=== PATIENT | male | born 1935 | race Caucasian/White ===

== ENCOUNTER 2016-05-31 21:19 | Inpatient (IN) | payer MEDICARE, BC ==
--- NOTE | ~2016-05-31 | MR18 ---
[facility] A Service of [facility] RADIOLOGY TEXT RESULTS PATIENT: SARA CARTER LOCATION: [facility]3A PC 317- : 37 UNIT #: [id number] AGE: [address]: Randy Vo MD SEX: M ORDER DR: [id number] [facility] [address]. [place], [place] [address] [id number] I MR#: [id number] Acc #: [id number] NAME: SARA CARTER : 1935 SEX: M STUDY DATE/TIME: 06/01/2016 10:14 [facility] [id number] STUDY DESCRIPTION: MR Brain Wo Contrast Attending Physician: Randy Vo M.D. Ordering Physician: Manish Mitchell M.D. Primary Care Physician: Grayson Law Jr., M.D. MRI CENTER REPORT This report is preliminary unless electronic signature is present. EXAM Brain MRI HISTORY Weakness to the left arm beginning yesterday. TECHNIQUE Multiplanar imaging of the brain was performed including diffusion weighted images. FINDINGS On diffusion weighted imaging there is a small focus of abnormal restricted diffusion in the precentral gyrus area on the right. There are 2 small foci each measuring a few millimeters in diameter in the cortex. The routine brain images show generalized atrophy with mild chronic ischemic changes around the ventricles. There is no evidence of mass lesion. There is no evidence of hemorrhage on gradient echo imaging. Extraaxial structures are remarkable for mild mastoid inflammatory disease on the left. IMPRESSION 1. Atrophy with mild chronic ischemic changes. 2. Tiny cortical infarcts are seen in the precentral gyrus on the right consistent with recent infarction. There are 2 small cortical infarcts adjacent to each other each measuring about 3-4 mm in diameter. STAT * RESULT Dictated by... [facility] A Service [facility] RADIOLOGY TEXT RESULTS PATIENT: SARA CARTER LOCATION: C3[facility] PC 317- : 37 UNIT #: [id number] AGE: [address]: Randy Vo MD SEX: M ORDER DR: Francisco Miller M.D. THIS IS AN ELECTRONICALLY VERIFIED REPORT Francisco Miller M.D. at 06/01/2016 1:03 PM RLF/to TD: 06/01/2016 11:21 JOB #: [id number] MRI CENTER REPORT Page 1 of 1 COPY
--- NOTE | ~2016-05-31 | A ---
[facility] Nutrition Therapy DATE: 06/01/16 Patient: SARA CARTER Physician: RENA Address: [address] [facility] Room/Bed: [address] [place] [address], Zip: [place] [phone] Admit Date: 05/31/16 Date of : 37 Height: Weight: NUTRITIONAL ASSESSMENT: REASON: Stroke protocol consult Diet: Heart healthy Assessment: Chart reviewed, events noted. RD consulted for stroke protocol. Per information in chart, pt did not require [employer]IST evaluation. RD spoke with the pt at bedside. Pt denies having any chewing or swallowng difficulties, and reports having a good appetite. RD provided heart healthy diet education. Pt was very pleasant, however, he did not seem interested in making changes to his diet. RD provided printed materials, and told the pt to contact RD with any questions. RD to remain available. Recommendations: 1. Follow a heart healthy diet as instructed by RD. Please consult RD for any further nutritional needs. Respectfully, AXEL PAULINO RD, LD Food and Nutritional Services [facility] cc: client file
--- NOTE | ~2016-05-31 | CT24 ---
[facility] A Service of [facility] RADIOLOGY TEXT RESULTS PATIENT: SARA CARTER LOCATION: C3A 317-01 : 37 UNIT #: [id number] AGE: [address]: Randy Vo MD SEX: M ORDER DR: [id number] [facility] [address] [place], [place] [address] [id number] I MR#: [id number] #: [id number] NAME: SARA CARTER. : 1935 SEX: M STUDY DATE/TIME: 05/31/2016 20:45 [facility] [id number] STUDY DESCRIPTION: CT Angio Neck Stroke Attending Physician: Tracey Horn M.D. Ordering Physician: Manish Mitchell M.D. Primary Care Physician: Grayson Law Jr., M.D. MEDICAL IMAGING REPORT This report is preliminary unless electronic signature is present EXAM CT angiogram head and neck with IV contrast. HISTORY Left arm weakness for 1 hour today. TECHNIQUE IV contrast-enhanced CT angiogram of the head and neck was performed with 3-D reconstructions. This CT exam was performed with one or more of the following radiation dose reduction techniques: automatic exposure control, adjustment of mA and/or kV according to patient size, and iterative reconstruction. FINDINGS CT ANGIOGRAM NECK: The common carotid arteries are widely patent bilaterally. There is mild calcified atherosclerotic plaque in the carotid bulbs bilaterally with minimal plaque extending into the proximal left internal carotid artery, but no evidence of internal carotid artery stenosis by NASCET criteria. Both vertebral arteries are widely patent. CT ANGIOGRAM BRAIN: The intracranial internal carotid arteries are widely patent. The anterior cerebral, middle cerebral and posterior cerebral arteries are also widely patent. The intracranial vertebral arteries and basilar artery are widely patent. No focal occlusion or significant stenosis. No aneurysm or vascular malformation. There is a probable 2 mm tiny infundibulum at the level of the origin of the right posterior communicating artery. However, no posterior communicating arteries are identified. IMPRESSION [facility] A Service of [facility] RADIOLOGY TEXT RESULTS PATIENT: SARA CARTER LOCATION: C3A 317-01 : 37 UNIT #: [id number] AGE: [address]: Randy Vo MD SEX: M ORDER DR: 1. No hemodynamically significant cervical carotid artery stenosis by NASCET criteria. 2. Very mild partly calcified atherosclerotic plaque in the carotid bulbs and in the proximal internal carotid arteries bilaterally. 3. Both vertebral arteries are widely patent. 4. No major intracranial arterial stenosis or occlusion. Probable tiny 2 mm infundibulum at the level of the right PCOM origin but no posterior communicating arteries are identified. Dictated by... Mike Camarena M.D. THIS IS AN ELECTRONICALLY VERIFIED REPORT Mike Camarena M.D. at 06/01/2016 2:30 PM ANGELIA/mejia TD: 06/01/2016 01:00 JOB #: [id number] MEDICAL IMAGING REPORT Page 1 of 1 COPY
--- NOTE | ~2016-05-31 | CO ---
Unit #: [id number] #: [id number] Patient: SARA CARTER [id number] [facility] [address]. [place], [place] [address] [id number] I MR#: [id number] NAME: SARA CARTER ROOM: 317 Age: 80 Sex: M Admission Date: 06/01/2016 : 1935 Attending Physician: Randy Vo M.D. Primary Care Physician: Grayson Law Jr., M.D. Consultation Date: 06/01/2016 CONSULTATION REPORT CONSULTING PHYSICIAN Dr. Tracey Horn REASON FOR CONSULTATION TIA. PATIENT IDENTIFICATION 80-year-old right-handed male evaluated initially in the ED room 20, he is now in room 317 at [facility]. SOURCE OF INFORMATION Obtained from the patient, as well as the medical record. HISTORY OF PRESENT ILLNESS This is a 80-year-old, right-handed, male with a past medical history of hypertension, 2D echo in 2011 that showed an EF of 40%, history of nonsustained supraventricular tachycardia, hyperlipidemia and BPH, as well as he is a reformed smoker who presented to [facility] with complaints of sudden onset left hand clumsiness and dropping things. He states that he was in his usual state of health until yesterday around 5:30 whenever he was watching TV. Whenever he noticed suddenly that he had weakness in his left arm, trouble using it and he actually was dropping things. He states he was not doing anything out of the ordinary and noticed sudden difficulty using the hands. He reports symptoms began to improve but admits that he still is not fully back to his baseline but he states that he feels pretty good. He denies any focal left facial or left leg difficulty. He denies any feeling of numbness or tingling. He states specifically that it was more of a difficulty using his left hand and dropping things. He actually came within the window for treatment but given his significant improvement of symptoms he was treated for TIA. Dr. Barber did see the patient via robot and initially discussed with him regarding the risks and benefits about the places he still had a measurable deficit. Whenever he saw the patient, the patient refused (1) and decided to observe. His head CT done in the ER without contrast per (2) protocol was unremarkable. His CT angiogram of the head and neck was negative for any hemodynamically significant cervical carotid artery stenosis by NASCET criteria. There is some very mild partly calcified atherosclerotic plaque in the carotid bulbs and proximal internal carotid arteries bilaterally. Both vertebral arteries are widely patent and no major intracranial arterial stenosis or occlusion. Probably tiny 2 mm infundibulum at the level of the right PCOM origin but no posterior communicating arteries are identified. Upon evaluation, the patient does have some mild difficulty using his left hand. His coordination seems to be slightly impaired but not significant. Unit #: [id number] #: [id number] Patient: SARA CARTER His strength is essentially equal. In the lower extremities he does not appear to have any difficulty, otherwise his exam is unremarkable. The patient states that he wants to go home. I did explain to him that he has risk factors for stroke and needs full evaluation and treatment. After evaluation, he did have an MRI of the brain done without contrast that shows atrophy with mild chronic ischemic changes but also shows an area of tiny cortical infarcts in the precentral gyrus on the right consistent with recent infarction. Two small cortical infarcts adjacent to each other measuring 3-4 mm in diameter. Imaging has been reviewed by Dr. Barber and discussed with him. The patient is being admitted for further workup and evaluation and given his essentially unremarkable CT angiogram, we have requested that he have a transesophageal echocardiogram done by cardiology that is being scheduled for tomorrow. Otherwise his labs are essentially unremarkable. CBC was negative. Troponin less than 0.05. PT 10.6, INR 1.0, PTT 24.3. BNP was unremarkable other than a glucose of 123. His creatinine is 1.2 and estimated GFR of 27.6. Repeat troponin unremarkable. Glucose on arrival is 116. PAST MEDICAL HISTORY 1. Hypertension. 2. 2D echo on 2011 showed an EF of 40%. 3. Cardiac catheterization in 2012 that shows no ischemic cardiomyopathy. Ejection fraction 40% to 45%. Medical management was recommended. 4. BPH. 5. Nonsustained supraventricular tachycardia. 6. Hyperlipidemia. 7. Reformed smoker. 8. Pneumonia. 9. Lumbar fusion. ALLERGIES No known drug allergies. HOME MEDICATIONS As per med rec. 1. Aspirin 81 mg p.o. daily. 2. Carvedilol 3.125 mg p.o. b.i.d. 3. Cozaar 12.5 mg p.o. daily. 4. Zetia 10 mg p.o. daily. 5. Furosemide 40 mg p.o. daily, however, he states that he ran out of his furosemide about a week or two ago and has not had it refilled. 6. Voltaren 100 g topically 4 times daily. REVIEW OF SYSTEMS 14 point review of systems was done, pertinent positives as above, otherwise negative. FAMILY HISTORY Noncontributory given his presenting condition. SOCIAL HISTORY He is a reformed smoker, he quit in 1968. He denies alcohol abuse or illicit drug use. PHYSICAL EXAMINATION VITAL SIGNS: Temperature 98.6, pulse 76, respirations 24, blood pressure 147/60, oxygen saturation 96%, height 6 feet, 2 inches. Unit #: [id number] #: [id number] Patient: SARA CARTER NEUROLOGIC EXAM: Patient is awake. He is alert and oriented to person, place and time, as well as events. No right/left confusion. No finger agnosia. No aphasia, dysarthria, or apraxia. CRANIAL NERVE EXAM: He demonstrates full hannah of vision. Eyes are conjugate without ptosis or nystagmus. Extraocular movements are intact. Sensation of the face and scalp is intact. Strength of muscles of facial expressions intact. Hearing is intact to finger rub as well as conversation. Tongue is midline, uvula is midline. Palate elevation is normal. Head turning and shoulder shrug is unremarkable. Neck supple. MOTOR EXAM: He demonstrates normal bulk, normal tone. His strength is equal, essentially 5 out of 5 in all extremities. He, however, had some difficulty with the left hand with [id number] and it is very mild abnormality and some mild difficulty with some motor movements but nothing involving the leg. SENSORY EXAM: Intact to soft touch and pinprick sensation. No extinction appreciated. GAIT AND ROMBERG: Deferred. REFLEXES: 1 out of 4. Toes are equivocal. COORDINATION: As discussed above. DIAGNOSTIC STUDIES IMAGING: Please see above. LABORATORY: Please see above. IMPRESSION 1. New onset left upper extremity with ataxia, likely secondary to MRI brain imaging. Findings of tiny cortical infarcts in the right hemisphere consistent with acute stroke, rule out cardioembolic etiology. We have requested a NUHA for tomorrow that has been arranged. Not thromboembolic cause identified on CT angiogram imaging. Risk factors have been discussed with the patient at length. 2. Hypertension. 3. Hyperlipidemia. Will start the patient on statin. 4. Noncompliance with medications recently. 5. BPH. 6. History of 2D echo ultrasound with EF of 40 in 2011, will await NUHA. PLAN Please see above, modification of risk factors have been discussed with the patient at length, regarding pathology of stroke and why he needs to remain here for a NUHA. He wishes to go home but is agreeable to stay. Further recommendations pending workup and further clinical course including NUHA to be done tomorrow. Patient is seen by Dr. Barbre and he agrees to the above. We will follow along with you. We thank you very much for allowing us to assist in the care of this patient. Dictated by... Keny Reed/jude TD: 06/02/2016 08:10 JOB #: [id number] Unit #: [id number] #: [id number] Patient: SARA CARTER CONSULTATION REPORT Page 1 of 1 X Ladi Jones APRN X CONSULTATION REPORT
--- NOTE | ~2016-05-31 | HM ---
Unit #: [id number] #: [id number] Patient: SARA CARTER [id number] [address] [address] [id number] I MR#: [id number] NAME: SARA CARTER. : 1935 SEX: M STUDY DATE/TIME: 06/01/2016 UNIT: C3A PCU ROOM: [address] [place] [address] DESCRIPTION: Holter Monitor Attending Physician: Randy Vo M.D. Primary Care Physician: Grayson Law Jr., M.D. CARDIOLOGY REPORT EXAM 24 Hour Holter Monitor DATE APPLIED 06/01/2016 DATE SCANNED 06/04/[address] Randy Vo READ BY Alyse Villegas M.D. REASON FOR THE STUDY Stroke. FINDINGS Underlying rhythm is normal sinus rhythm with an average heart rate of 82 beats, minimum heart rate of 60 beats per minute, and a maximum heart rate of 111 beats per minute. The minimum heart rate of 60 beats per minute is noted at 5:40 a.m. The maximum heart rate of 111 beats per minute is noted at 11:35 a.m. The patient had a 1.4 second pause noted at 5:42 a.m. The patient had 11,856 single multifocal premature ventricular complexes, just 11% of total QRS complexes. The patient had 391 ventricular couplets and 177 ventricular bigeminy noted. The patient had 3 to 5 beat run of ventricular tachycardia with heart rate ranging from 90 to 160 beats per minute. The patient had 30,413 single premature atrial complexes, 1758 atrial couplets noted. The patient had several atrial bigeminy noted. Patient had 3 to 18 beat run of atrial tachycardia with a heart rate ranging from 105 to 170 beats per minute. Patient did not record any symptoms. CONCLUSION 1. Underlying rhythm is normal sinus rhythm with an average heart rate of 82 beats per minute, minimum heart rate of 60 beats per minute with a maximum heart of 111 beats per minute. 2. No sustained atrial or ventricular arrhythmias noted. 3. No significant pauses noted. 4. Extremely frequent single multifocal premature ventricular complex, very frequent ventricular couplet and ventricular bigeminy noted. Unit #: [id number] #: [id number] Patient: SARA CARTER 5. The patient had several 3 to 5 beat run of ventricular tachycardia with heart rate ranging from 90 to 160 beats per minute. 6. Extremely frequent premature atrial complex, atrial couplet and atrial bigeminy noted. 7. The patient had several 3 to 18 beat run of atrial tachycardia with a heart rate ranging from 105 to 170 beats per minute. 8. The patient did not record any symptoms. 9. Very abnormal 24 hour Holter report. Dictated by... Tony Nuñez TD: 06/06/2016 05:58 JOB #: [id number] CARDIOLOGY REPORT Page 1 of 1 X Alyse Villegas MD <ELECTRONICALLY SIGNED> 09/16/16 1429 HOLTER MONITOR REPORT
--- NOTE | ~2016-05-31 | CT72 ---
[facility] A Service [facility] RADIOLOGY TEXT RESULTS PATIENT: SARA CARTER LOCATION: [facility] 317- : 37 UNIT #: [id number] AGE: [address]: Randy Vo MD SEX: M ORDER DR: [id number] [address] [place], [place] [address] [id number] MR#: [id number] Acc #: [id number] NAME: SARA CARTER. : 1935 SEX: M STUDY DATE/TIME: 05/31/2016 20:40 UNIT: [facility] ROOM: STUDY DESCRIPTION: CT Head Wo Contrast Stroke Attending Physician: Manish Mitchell M.D. Ordering Physician: Manish Mitchell M.D. Primary Care Physician: Grayson Law Jr., M.D. MEDICAL IMAGING REPORT This report is preliminary unless electronic signature is present EXAM CT head INDICATION Focal neurological deficit. Weakness in the left arm for [address] of the head without contrast. This CT exam was performed with one or more of the following radiation dose reduction techniques: automatic exposure control, adjustment of mA and/or kV according to patient size, and iterative reconstruction. COMPARISON CT head 12/09/01 FINDINGS There is no acute intracranial hemorrhage, mass lesion, or acute infarct. Velasco-white matter differentiation is within normal limits. The ventricles and basilar cisterns are normal in size and configuration. No extraaxial collection. IMPRESSION No acute intracranial findings. Dictated by... Aleks Jain M.D. THIS IS AN ELECTRONICALLY VERIFIED REPORT Aleks Jain M.D. at 06/01/2016 3:28 PM RPC/mejia [facility] A Service [facility] RADIOLOGY TEXT RESULTS PATIENT: SARA CARTER LOCATION: [facility] 317- : 37 UNIT #: [id number] AGE: [address]: Randy Vo MD SEX: M ORDER DR: TD: 05/31/2016 23:38 JOB #: [id number] MEDICAL IMAGING REPORT Page 1 of 1 COPY
--- NOTE | ~2016-05-31 | EKG ---
PATIENT: SARA CARTER UNIT #: [id number] Ventricular Rate: 88 BPM Atrial Rate: 88 BPM P-R Interval: 178 ms QRS Duration: 92 ms Q-T Interval: 392 ms QTC Calculation(Bezet): 474 ms P [place]: 42 degrees Calculated R [place]: -41 degrees Calculated T [place]: -23 degrees Diagnosis Line: Sinus rhythm with Premature supraventricular Diagnosis Line: complexes and with occasional Premature Diagnosis Line: ventricular complexes Diagnosis Line: Left axis deviation Diagnosis Line: Incomplete right bundle branch block Diagnosis Line: Septal infarct (cited on or before 26-DEC-2010) Diagnosis Line: Abnormal ECG Diagnosis Line: When compared with ECG of 03-MAY-2012 11:58, Diagnosis Line: Significant changes have occurred Diagnosis Line: Confirmed by MARY SANDOVAL MD ([id number]) on 06/02/2016 Diagnosis Line: 6:55:53 PM INTERPRETING MD: LORI HOPE
--- NOTE | ~2016-05-31 | DS ---
Unit #: [id number] #: [id number] Patient: SARA CARTER [id number] [address] [address] [id number] I MR#: [id number] NAME: SARA CARTER. ROOM: 317 Age: 80 Sex: M Admission Date: 06/01/2016 : 1935 Discharge Date: 06/02/2016 Attending Physician: Randy Vo M.D. Primary Care Physician: Grayson Law Jr., M.D. DISCHARGE SUMMARY DISCHARGE DIAGNOSES 1. Acute cortical infarction with resolved left upper extremity weakness as well as ataxia. 2. Essential hypertension. 3. Nonischemic cardiomyopathy with an ejection fraction of 35%. 4. History of nonsustained ventricular tachycardia. 5. Noncompliance with medications. 6. Degenerative joint disease. 7. Dyslipidemia. CONSULTANTS Dr. Barber of neurology. PROCEDURES Patient had a NUHA done by Dr. Esteban Charles. Please refer to his full dictated report for further details. DIAGNOSTIC STUDIES IMAGING: Head CT on 05/31/16, impression: No acute intracranial findings. CT angio of neck, impression: No hemodynamically significant cervical carotid artery stenosis. Very mild partly calcified atherosclerotic plaque in the carotid bulbs and in the proximal internal carotid arteries bilaterally. Both vertebral arteries are widely patent. No major intracranial arterial stenosis or occlusion. Probably tiny 2 mm infundibulum at the level of the right PCOM origin but no posterior communicating arteries are identified. MRI without contrast, impression: Atrophy with mild chronic ischemic changes. Tiny cortical infarcts are seen in the precentral gyrus on the right consistent with recent infarction. There are 2 small cortical infarcts adjacent to each other each measuring about 3-4 mm in diameter. LABORATORY: The patient's labs on the day of discharge are glucose 89, BUN 19, creatinine 1.2, sodium 139, potassium 4.7, chloride 103, CO2 29, calcium 8.7, magnesium 2.3, total protein of 7.2, albumin of 3.8, total bilirubin 1.1, AST of 16, ALT of 12, alkaline phosphatase 76. The patient's A1C was 5.6. Fasting lipids: Total cholesterol was 266, LDL of 208. CBC with WBC of 6.9, RBC of 5.03, hemoglobin 15.1, hematocrit is 46.2, MCV is 92.0, MCH is 30.1, MCHC is 32.7, RDW is 13.7, platelet is 251, MPV is 8.9. Unit #: [id number] #: [id number] Patient: SARA CARTER [facility] This patient is a 80-year-old male with a past medical history of essential hypertension, diastolic heart failure with an ejection fraction of 40% back in 2011, nonischemic cardiomyopathy, history of nonsustained v-tach, hyperlipidemia, BMH, who is a former smoker, presented to the emergency department due to complaints of sudden onset of left-sided numbness, symptom is intermittent, it comes and goes, as well as being clumsy and dropping things. He was in his usual state of health until the day prior to admission around 5:30 was watching TV when he felt some left arm numbness. He presented to the emergency department where head CT was done and it was unremarkable. CT angiogram of neck was done which was unremarkable as well. Patient was seen in consult with Cardiology and then with Neurology and had an MRI of the brain done which did show a small tiny cortical infarct in the precentral gyrus on the right consistent with recent infarction. Due to the patient's recent event as well as significant comorbidities a NUHA was done by Cardiology. Preliminary findings state no clots and no signs of significant atherosclerosis of the ascending aorta. No obvious cardiac source (1) by the transesophageal echocardiogram therefore at this time with the patient's resolution of the symptoms Neurology is recommending that patient be discharged home with Plavix as well as Lipitor 40 mg p.o. q.h.s. If patient had mild muscle pain with previous statin usage he cannot recall what it was. Both Neurology and I have spent an extensive amount of time consulting patient on the need to either call up his family doctor or to present to the emergency department for further symptoms of muscle aches and pains as well as no urine output in 24 hours. He voiced understanding. CONDITION ON DISCHARGE Discharge condition is stable. ACTIVITY Discharge activity is nonrestricted with ambulating every day as tolerated. DIET He is to have a heart-healthy diet. DISCHARGE MEDICINES 1. Zetia 10 mg p.o. daily. 2. Coreg 3.125 mg p.o. b.i.d. A prescription for 30 days was given. 3. Lasix 40 mg p.o. daily. 4. Losartan 12.5 mg p.o. daily. A prescription for 30 says was given. 5. Patient should stop the aspirin. 6. Start Plavix 75 mg p.o. daily, as well as 7. Lipitor 40 mg p.o. daily. ADDENDUM On followup with his primary care physician, if patient is tolerating Lipitor at 40 may consider increasing to 80 mg p.o. daily as this is the recommended guideline for patient with an elevated LDL as well as having an embolic event. The second thing is that patient seems to have been experiencing some adjustment disorder with the stressor being financial burden. Patient would not elaborate to myself about this but did mention this to Ladi Jones, nurse practitioner with Neurology. At this time I would recommend Unit #: [id number] #: [id number] Patient: SARA CARTER that patient follow up with Dr. Law about this possibility for starting him on any selective serotonin reuptake inhibitor for his depression/anxiety issues. JOB #: [id number] Dictated by... Ra Monreal PA-C for Tony Calvo/percy TD: 06/02/2016 18:15 JOB #: [id number] DISCHARGE SUMMARY Page 1 of 1 X X DISCHARGE SUMMARY
--- NOTE | ~2016-05-31 | HP ---
Unit #: [id number] #: [id number] Patient: SARA CARTER [id number] [address] [address] [id number] I MR#: [id number] NAME: SARA CARTER. ROOM: 65248 Age: 80 Sex: M Admission Date: 05/31/2016 : 1935 Attending Physician: Tracey Horn M.D. Primary Care Physician: Grayson Law Jr., M.D. HISTORY AND PHYSICAL CHIEF COMPLAINT Left hand weakness. HISTORY This 80-year-old male with hypertension, nonischemic cardiomyopathy, hyperlipidemia, is admitted for complaints of left hand weakness. Patient was in his usual state of health until 5 p.m. tonight, when he developed sudden weakness and incoordination of the left hand. He was holding a can of fruit and dropped the can. Denies any other neurologic symptoms with the above. He presented to this emergency department at 7:30 p.m. and immediately went to CT scanner, which was essentially normal. The case was also discussed with Neurology, who initially recommended TPA, but the patient declined. His symptoms are now improved. He may have very slight incoordination, but his strength is back to normal. He has never had similar symptoms in the past. The patient's EKG shows normal sinus rhythm with APCs and PVCs. Patient does have history of nonsustained ventricular tachycardia. PAST MEDICAL HISTORY 1. Cardiac catheterization 04/2012 revealing 30% lesion of the LAD. Ejection fraction 45%. Patient has a history of nonsustained ventricular tachycardia. 2. Essential hypertension. 3. Hyperlipidemia. 4. DJD. 5. Back surgery. ALLERGIES No known drug allergies. HOME MEDICATIONS 1. Aspirin 81 mg daily 2. Coreg b.i.d. Other medicines of unknown names that patient ran out of 2 weeks ago. FAMILY HISTORY Negative for cardiovascular disease or CVA. SOCIAL HISTORY Unit #: [id number] #: [id number] Patient: SARA CARTER The patient lives alone. He stopped smoking in 1968. He does not drink alcohol. REVIEW OF SYSTEMS Notable for left hand weakness, minor CAD, arrhythmia, hyperlipidemia, hypertension, DJD, back surgery. All other systems were reviewed and are negative. PHYSICAL EXAMINATION GENERAL: 80-year-old male currently in no acute distress. VITAL SIGNS: Temperature 98.1. Pulse was initially read as 40, but currently on EKG his heart rate is 88. Respirations 16, blood pressure 152/57, O2 saturation 97% on room air. HEENT EXAMINATION: Eyes PERRLA. Extraocular muscles are intact. Pharynx is benign. NECK: Supple without adenopathy, thyromegaly or carotid bruits. CHEST: Clear. CARDIAC: Normal S1, S2 with a soft systolic murmur best heard at the right upper sternal border. ABDOMEN: Bowel sounds are present. No hepatosplenomegaly, tenderness or masses. EXTREMITIES: Mild edema. Pedal pulses are present. NEUROLOGIC EXAM: Patient is awake, alert, oriented. His cranial nerves are intact. He has +5/5 strength throughout. Some slight difficulty with rapid alternating movements on the left. Some slight difficulty with [id number] on the left. Negative pronator drift. He is able to sit up without assistance. DIAGNOSTIC STUDIES ADMISSION LABORATORY: Hematocrit is 44.1, normal white count, platelet count and coags. SMA-12: Glucose is 123. Cardiac markers are negative. IMAGING 1. Head CT: No acute disease. 2. CTA of the head and neck: Negative. Mild plaque in the carotid bulbs and bilateral internal carotid arteries. No cutoff or occlusion. 2 mm infundibulum right PICA origin. CARDIOLOGY: EKG shows a normal sinus rhythm, rate 88, with PACs and PVCs. Somewhat poor R wave progression in V1 through V3. Left axis deviation. ASSESSMENT 1. Transient ischemic attack affecting the left hand, improved. 2. Essential hypertension. 3. Nonischemic cardiomyopathy, ejection fraction 45%. 4. History of nonsustained ventricular tachycardia. 5. Noncompliance with medicines. 6. Degenerative joint disease. 7. Hyperlipidemia. PLANS 1. Need names and doses of home medicines. 2. Increase aspirin. 3. Case was discussed with Neurology. Unit #: [id number] #: [id number] Patient: SARA CARTER 4. Check lipid profile, Holter monitor, echocardiogram and MRI of the brain. 5. SCDs for DVT prophylaxis. Dictated by Tony Cueto/psc TD: 06/01/2016 02:10 JOB #: [id number] CC: Eri Wright M.D. HISTORY AND PHYSICAL Page 1 of 1 X Tracey Horn MD HISTORY AND PHYSICAL
[2016-05-31 20:44] LABS: BASOPHIL# 0.1 X10e3 (0-0.3); DIFF IND NO; EOSINOPHIL# 0.2 X10e3 (0-0.7); EOSINOPHIL% 2.8 % (0.0-7.0); HEMATOCRIT 44.1 % (38.0-50.0); HEMOGLOBIN 14.5 gm/dL (13.0-16.0); LYMPHOCYTE# 1.4 X10e3 (1.0-3.5); LYMPHOCYTE% 23.7 % (17.0-45.0); MEAN PLATELET VOLUME 8.6 FL (6.5-11.5); MONOCYTE# 0.6 X10e3 (0-1.0); NEUTROPHIL# 3.9 X10e3 (1.5-7.1); NEUTROPHIL% 63.5 % (40-75); PLATELET COUNT 230 X10e3 (140-420); RED BLOOD COUNT 4.84 X10e (3.90-5.60); RED CELL DISTRIBUTION WIDTH 13.8 % (11.0-15.5); WHITE BLOOD COUNT 6.1 X10e3 (4.0-10.5)
[2016-05-31 20:51] LABS: POC - CKMB 1.1 ng/mL (0.0-7.9); POC - TROPONIN <0.05 ng/mL (<=0.05)
[2016-05-31 20:57] LABS: PARTIAL THROMBOPLASTIN TIME 24.3 SECONDS (23.5-31.3); PROTHROMBIN TIME (PATIENT) 10.6 SECONDS (9.6-11.5)
[2016-05-31 21:04] LABS: ALBUMIN SERUM 3.8 g/dL (3.5-5.0); BILIRUBIN, DIRECT 0.1 mg/dL (0.0-0.2); BILIRUBIN,TOTAL 1.1 mg/dL (0.2-2.0); BUN/CREATININE RATIO 14.16; CALCIUM SERUM 9.1 mg/dL (8.4-10.2); CREATININE SERUM 1.2 mg/dL (0.6-1.4); GLOM FILT RATE Estimated 57.6 mL/min (>60); POTASSIUM 4.7 mmol/L (3.5-5.1); PROTEIN TOTAL SERUM 7.2 g/dL (6.0-8.3)
[~2016-05-31 21:19] MED LIST: ASPIRIN81 M1 PO; CARVEDILOL3.125 MG; COREG3.125 MG PO; CRESTOR10 MG PO; FLOMAX0.4 M1 PO; LEVAQUIN PO; LOSARTAN POTASS50 MG PO; ZESTRIL5 MG PO; ZOCOR PO
[2016-05-31 22:29] LABS: POC - CKMB <1.0 ng/mL (0.0-7.9); POC - TROPONIN <0.05 ng/mL (<=0.05)
[2016-06-01] MEDS ORDERED: CARVEDILOL3.125 MG PO (02:22)
[2016-06-01] MEDS ORDERED: ASPIRIN81 MG PO (02:22)
[2016-06-01] MEDS ORDERED: COZAAR PO (02:23)
[2016-06-01] MEDS ORDERED: LASIX PO (02:23)
[2016-06-01] MEDS ORDERED: ZETIA PO (02:23)
[2016-06-01] MEDS ORDERED: VOLTAREN100 GM TOP (02:24)
[2016-06-01 04:45] LABS: POC - GFR >60.0 mL/min (>60)
[2016-06-01 08:35] LABS: BASOPHIL% 0.7 % (0-2.5); EOSINOPHIL# 0.2 X10e3 (0-0.7); EOSINOPHIL% 4.3 % (0.0-7.0); HEMATOCRIT 43.6 % (38.0-50.0); HEMOGLOBIN 14.4 gm/dL (13.0-16.0); LYMPHOCYTE# 1.1 X10e3 (1.0-3.5); LYMPHOCYTE% 21.1 % (17.0-45.0); MEAN CELL VOLUME 91.2 FL (83-96); MEAN CORPUSCULAR HEMOGLOBIN 30.1 PG (28-34); MEAN CORPUSCULAR HGB CONC 33.1 g/dL (30-36); MEAN PLATELET VOLUME 8.5 FL (6.5-11.5); MONOCYTE# 0.4 X10e3 (0-1.0); NEUTROPHIL# 3.4 X10e3 (1.5-7.1); NEUTROPHIL% 66.9 % (40-75); PLATELET COUNT 210 X10e3 (140-420); RED BLOOD COUNT 4.78 X10e (3.90-5.60); RED CELL DISTRIBUTION WIDTH 13.8 % (11.0-15.5)
[2016-06-01 08:41] LABS: DIFF IND NO
[2016-06-01 08:57] LABS: BUN/CREATININE RATIO 13.63; CALCIUM SERUM 8.6 mg/dL (8.4-10.2); CREATININE SERUM 1.1 mg/dL (0.6-1.4); POTASSIUM 4.5 mmol/L (3.5-5.1)
[2016-06-01] MEDS ORDERED: MELOXICAM7.5 MG PO (12:38)
[2016-06-01] MEDS ORDERED: METFORMIN HCL500 M3 PO (12:39)
[2016-06-01 20:06] LABS: P2Y12 INHIB (PFAPLAVIX) 179 PRU (())
[2016-06-02 05:40] LABS: HEMATOCRIT 46.2 % (38.0-50.0); HEMOGLOBIN 15.1 gm/dL (13.0-16.0); MEAN CORPUSCULAR HEMOGLOBIN 30.1 PG (28-34); MEAN CORPUSCULAR HGB CONC 32.7 g/dL (30-36); MEAN PLATELET VOLUME 8.9 FL (6.5-11.5); RED BLOOD COUNT 5.03 X10e (3.90-5.60); RED CELL DISTRIBUTION WIDTH 13.7 % (11.0-15.5); WHITE BLOOD COUNT 6.9 X10e3 (4.0-10.5)
[2016-06-02 06:04] LABS: BUN/CREATININE RATIO 15.83; CALCIUM SERUM 8.7 mg/dL (8.4-10.2); CREATININE SERUM 1.2 mg/dL (0.6-1.4); GLOM FILT RATE Estimated 57.6 mL/min (>60); MAGNESIUM 2.3 mg/dL (1.6-3.0); POTASSIUM 4.7 mmol/L (3.5-5.1)
[2016-06-02] MEDS ORDERED: CLOPIDOGREL75 MG PO (17:19)
[2016-06-02] MEDS ORDERED: LIPITOR40 MG PO (17:19)
== END 2016-06-02 17:51 | disposition home or self-care (01) | DRG 65 ==
LOC: CED 21:19 → CEDOF 06-01 00:49 → C3A PCU 06-01 11:44
PROVIDERS: Emergency Medicine; Internal Medicine; Physician Assistant Medical; Psychiatry & Neurology Neurology
PROC: B32RYZZ Computerized Tomography (CT Scan) of Intracranial Arteries using Other Contrast (ICD-10-PCS; 2016-05-31)
PROC: B32GYZZ Computerized Tomography (CT Scan) of Bilateral Vertebral Arteries using Other Contrast (ICD-10-PCS; 2016-05-31)
PROC: B328YZZ Computerized Tomography (CT Scan) of Bilateral Internal Carotid Arteries using Other Contrast (ICD-10-PCS; 2016-05-31)
PROC: B24BYZZ Ultrasonography of Heart with Aorta using Other Contrast (ICD-10-PCS; 2016-06-01)
PROC: B24BZZ4 Ultrasonography of Heart with Aorta, Transesophageal (ICD-10-PCS; principal; 2016-06-02)
DX: I63.9 Cerebral infarction, unspecified (principal); I47.1 Supraventricular tachycardia; I42.9 Cardiomyopathy, unspecified; G81.94 Hemiplegia, unspecified affecting left nondominant side; I10 Essential (primary) hypertension; E78.5 Hyperlipidemia, unspecified; N40.0 Benign prostatic hyperplasia without lower urinary tract symptoms; Z87.891 Personal history of nicotine dependence; Z79.82 Long term (current) use of aspirin; R27.0 Ataxia, unspecified; Z91.14 Patient's other noncompliance with medication regimen; M19.90 Unspecified osteoarthritis, unspecified site
CPT/HCPCS: 70450; 70496; 70498; 70551; 80048; 80061; 80076; 82553; 82565; 82947; 83036; 83735; 84443; 84484; 85025; 85027; 85576; 85610; 85730; 86140; 93005; 93225; 93226; 93306; 93312; 94760; 97161; 99291; G8978-GP; G8979-GP; G8980-GP; J1200; J2250; J3010; Q9967

== ENCOUNTER 2016-11-13 13:51 | Emergency (ER) | payer MEDICARE, BC ==
[~2016-11-13] VITALS: Ht 185.4 cm; Wt 92.4 kg
--- NOTE | ~2016-11-13 | EKG ---
PATIENT: SARA CARTER UNIT #: [id number] Ventricular Rate: 60 BPM Atrial Rate: 60 BPM P-R Interval: 168 ms QRS Duration: 98 ms Q-T Interval: 426 ms QTC Calculation(Bezet): 426 ms P [place]: 50 degrees Calculated R [place]: -46 degrees Calculated T [place]: -55 degrees Diagnosis Line: Sinus rhythm with Premature atrial complexes Diagnosis Line: Left axis deviation Diagnosis Line: Septal infarct (cited on or before 26-DEC-2010) Diagnosis Line: Abnormal ECG Diagnosis Line: When compared with ECG of 31-MAY-2016 21:05, Diagnosis Line: Premature ventricular complexes are no longer Diagnosis Line: Present Diagnosis Line: Incomplete right bundle branch block is no longer Diagnosis Line: Present Diagnosis Line: Diagnosis Line: Confirmed by JAIDEN JUAREZ MDTWIN CITY HOSPITALGERALD ([id number]) on Diagnosis Line: 11/14/2016 12:34:48 PM INTERPRETING MD: ANN HOPE
--- NOTE | ~2016-11-13 | CR72 ---
[facility] A Service of [facility] & [facility] RADIOLOGY TEXT RESULTS PATIENT: SARA CARTER LOCATION: [facility] : 37 UNIT #: [id number] AGE: [address]: Dede Platt MD SEX: M ORDER DR: [id number] [facility] [address] [place], [place] [address] [id number] MR#: [id number] Acc #: [id number] NAME: SARA CARTER. : 1935 SEX: M STUDY DATE/TIME: 11/13/2016 17:42 UNIT: [facility] ROOM: STUDY DESCRIPTION: CR Chest Single View Portable Attending Physician: Dede Platt M.D. Ordering Physician: Dede Platt M.D. Primary Care Physician: Eri Wright M.D. MEDICAL IMAGING REPORT This report is preliminary unless electronic signature is present EXAM Portable chest. HISTORY Shortness of air cough x1 week. COMPARISON 12/26/2010. FINDINGS Portable view of the chest demonstrates a small amount of left basilar atelectasis. No dense airspace disease or consolidation. No sizeable effusions. Heart, mediastinum unremarkable. No pneumothorax. Dictated by... Carolyn Melendez M.D. THIS IS AN ELECTRONICALLY VERIFIED REPORT Carolyn Melendez M.D. at 11/14/2016 3:11 PM VIRGEN/marshall TD: 11/14/2016 09:50 JOB #: [id number] MEDICAL IMAGING REPORT Page 1 of 1 COPY
[~2016-11-13 13:51] MED LIST changes: +ASPIRIN81 MG PO; +CARVEDILOL3.125 MG PO; +CLOPIDOGREL75 MG PO; +COZAAR PO; +LASIX PO; +LIPITOR40 MG PO; +MELOXICAM7.5 MG PO; +METFORMIN HCL500 M3 PO; +VOLTAREN100 GM TOP; +ZETIA PO
[2016-11-13 16:26] LABS: BASOPHIL# 0.1 X10e3 (0-0.3); BASOPHIL% 1.2 % (0-2.5); EOSINOPHIL# 0.2 X10e3 (0-0.7); EOSINOPHIL% 4.3 % (0.0-7.0); HEMATOCRIT 43.7 % (38.0-50.0); HEMOGLOBIN 14.4 gm/dL (13.0-16.0); LYMPHOCYTE# 1.1 X10e3 (1.0-3.5); LYMPHOCYTE% 21.5 % (17.0-45.0); MEAN CELL VOLUME 91.1 FL (83-96); MEAN CORPUSCULAR HEMOGLOBIN 30.1 PG (28-34); MEAN PLATELET VOLUME 8.5 FL (6.5-11.5); MONOCYTE# 0.4 X10e3 (0-1.0); MONOCYTE% 7.5 % (3.0-12.0); NEUTROPHIL# 3.2 X10e3 (1.5-7.1); NEUTROPHIL% 65.5 % (40-75); PLATELET COUNT 237 X10e3 (140-420); RED CELL DISTRIBUTION WIDTH 13.4 % (11.0-15.5); WHITE BLOOD COUNT 4.9 X10e3 (4.0-10.5)
[2016-11-13 16:27] LABS: DIFF IND NO
[2016-11-13 16:48] LABS: ALBUMIN SERUM 3.8 g/dL (3.5-5.0); BILIRUBIN, DIRECT 0.2 mg/dL (0.0-0.2); BILIRUBIN,INDIRECT 1.2 mg/dL (0.0-0.9); BILIRUBIN,TOTAL 1.4 mg/dL (0.2-2.0); BUN/CREATININE RATIO 11.81; CALCIUM SERUM 8.8 mg/dL (8.4-10.2); CREATININE SERUM 1.1 mg/dL (0.6-1.4); GLOM FILT RATE Estimated 63.5 mL/min (>60); POTASSIUM 4.3 mmol/L (3.5-5.1)
[2016-11-13 16:57] LABS: POC - CKMB 1.6 ng/mL (0.0-7.9); POC - TROPONIN <0.05 ng/mL (<=0.05)
[2016-11-13 17:51] LABS: POC - CKMB 1.3 ng/mL (0.0-7.9); POC - TROPONIN <0.05 ng/mL (<=0.05)
== END 2016-11-13 19:18 | disposition home or self-care (01) ==
LOC: CED 13:51
PROVIDERS: Emergency Medicine
DX: J18.9 Pneumonia, unspecified organism (principal); I11.0 Hypertensive heart disease with heart failure; I50.9 Heart failure, unspecified; E78.5 Hyperlipidemia, unspecified; Z98.890 Other specified postprocedural states; Z79.899 Other long term (current) drug therapy
CPT/HCPCS: 36415; 71010; 80048; 80076; 82553; 83880; 84484; 85025; 93005; 94640; 99285